=== PATIENT | female | born 1960 | race Caucasian/White ===

== ENCOUNTER → 2017-01-04 | Outpatient (CLI) | payer OTHER | END | disposition home or self-care (01) | LOC: CFH 13:43 | PROVIDERS: ATTEND Physician Assistant | DX: Z12.31 Encounter for screening mammogram for malignant neoplasm of breast (principal) | CPT/HCPCS: 77063; G0202 ==

== ENCOUNTER → 2018-02-08 | Outpatient (CLI) | payer OTHER | END | disposition home or self-care (01) | LOC: CFH 08:00 | PROVIDERS: ATTEND Physician Assistant | DX: R92.2 Inconclusive mammogram (principal); Z80.3 Family history of malignant neoplasm of breast | CPT/HCPCS: 76377; 76642 ==

== ENCOUNTER → 2019-01-31 | Outpatient (CLI) | payer BC | END | disposition home or self-care (01) | LOC: CFH 09:04 | PROVIDERS: ATTEND Family Medicine | DX: Z12.31 Encounter for screening mammogram for malignant neoplasm of breast (principal) | CPT/HCPCS: 77063; 77067 ==

== ENCOUNTER → 2020-02-12 | Outpatient (CLI) | payer BC | END | disposition home or self-care (01) | LOC: CFH 13:04 | PROVIDERS: ATTEND Family Medicine | DX: Z12.31 Encounter for screening mammogram for malignant neoplasm of breast (principal) | CPT/HCPCS: 77063; 77067 ==